=== PATIENT | male | born 1970 ===

== ENCOUNTER 2021-11-26 10:53 | Emergency (ER) | payer OTHER ==
[~2021-11-26] VITALS: Ht 180.3 cm; Wt 127.0 kg
[2021-11-26] MEDS ORDERED: GLIPIZIDE XL10 MG PO (11:41)
[2021-11-26] MEDS ORDERED: METFORMIN HCL1000 M2 PO (11:41)
[2021-11-26] MEDS ORDERED: LIPITOR20 MG PO (11:42)
[2021-11-26] MEDS ORDERED: HUMULIN R100 UNIT/1 SUBCUTANEO (11:42)
== END 2021-11-26 18:08 | disposition home or self-care (01) ==
LOC: ER 10:53
DX: M54.50 Low back pain, unspecified (principal); N28.1 Cyst of kidney, acquired; E11.9 Type 2 diabetes mellitus without complications; Z79.4 Long term (current) use of insulin; Z79.84 Long term (current) use of oral hypoglycemic drugs; Z88.6 Allergy status to analgesic agent; Z88.0 Allergy status to penicillin; Z88.2 Allergy status to sulfonamides